=== PATIENT | male | born 1995 | race Caucasian/White ===

== ENCOUNTER 2018-08-20 01:22 | Observation (INO) | payer OTHER, BC ==
[2018-08-20] MEDS ORDERED: NS 1,000 ML IV ONE ×2 (02:04→02:15)
[2018-08-20] MEDS ORDERED: INSULIN LISPRO 100 UNIT/ML SC ONE (02:15)
[2018-08-20 02:17] LABS: PLATELET COUNT 353 10^3/uL (150-400)
[2018-08-20] MEDS ORDERED: IOPAMIDOL (ISOVUE 370) 100 ML BTL IV ONE (02:39)
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
[2018-08-20] MEDS ORDERED: ONDANSETRON 4 MG/2 ML VIAL IVP PRN (03:23)
[2018-08-20] MEDS ORDERED: DIAZEPAM 5 MG TAB PO PRN (03:23)
[2018-08-20] MEDS ORDERED: LR 1,000 ML IV SCH (03:30)
[2018-08-20] MEDS ORDERED: D50W 25 GM/50 ML VIAL IVP PRN (03:55)
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
[2018-08-20 04:54] LABS: PLATELET COUNT 297 10^3/uL (150-400)
[2018-08-20 05:08] LABS: INR 0.94 (0.83-1.16); PROTIME(PATIENT) 12.8 SEC (12.0-15.0)
--- NOTE | 2018-08-20 06:13 | CPEKG ---
Test Reason : OPEN Blood Pressure : / mmHG Vent. Rate : 120 BPM Atrial Rate : 120 BPM P-R Int : 123 ms QRS Dur : 094 ms QT Int : 317 ms P-R-T Axes : 079 085 047 degrees QTc Int : [address] elev, probable normal early repol pattern Confirmed by Mau Duckworth ([id number]) on 08/20/2018 6:12:28 AM Referred By: Confirmed By:Mau Duckworth
[2018-08-20 06:27] LABS: HEPATITIS C ANTIBODY TOTAL NEGATIVE (NEGATIVE)
[2018-08-20] MEDS ORDERED: INSULIN LISPRO 100 UNIT/ML SC SCH ×2 (08:00→21:00)
[2018-08-20 08:52] LABS: HEPATITIS A ANTIBODY IGM (BCH) NEGATIVE (NEGATIVE); HEPATITIS B CORE AB IGM NEGATIVE (NEGATIVE); HEPATITIS B SURFACE ANTIGEN NEGATIVE (NEGATIVE)
[2018-08-20] MEDS: BACITRACIN ZINC 14.2 GM OINTTUBE TP SCH ×2 (09:26→21:43)
[2018-08-20] MEDS: ONDANSETRON DISINTEGRATING 4 MG TAB PO PRN (09:47)
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
[2018-08-20] MEDS ORDERED: ACETAMINOPHEN 325 MG TAB PO PRN (10:17)
[2018-08-20] MEDS ORDERED: MAGNESIUM HYDROXIDE 30 ML UDCUP PO PRN (10:40)
[2018-08-20] MEDS ORDERED: POLYETHYLENE GLYCOL 3350 17 GM PKT PO PRN (10:40)
[2018-08-20] MEDS ORDERED: LACTULOSE 20 GM/30 ML UDCUP PO PRN (10:40)
[2018-08-20] MEDS ORDERED: BISACODYL 10 MG SUPP PR PRN (10:40)
[2018-08-20] MEDS ORDERED: NON-FORMULARY NEW DRUG (Insulin Pump, Patient Own 1 EA) MISC SCH (10:45)
[2018-08-20] MEDS ORDERED: D50W 25 GM/50 ML SYR IVP PRN (10:50)
[2018-08-20] MEDS ORDERED: INSULIN PUMP, PATIENT OWN 1 EA MISC SCH (11:00)
[2018-08-20] MEDS: HYDROCODONE/APAP 5/325 TAB PO PRN ×3 (11:12→20:39)
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
[2018-08-20] MEDS: IBUPROFEN 600 MG TAB PO PRN (13:33)
[2018-08-20] MEDS ORDERED: INSULIN REGULAR HUMAN 100 UNIT/ML UNIT IVP ONE (13:41)
[2018-08-20 14:13] LABS: PLATELET COUNT 276 10^3/uL (150-400)
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
[2018-08-20] MEDS: SENNOSIDES/DOCUSATE SODIUM TAB PO SCH (20:36)
[2018-08-20] MEDS ORDERED: PNEUMOCOCCAL 0.5ML VACCINE VIAL IM ONE (21:49)
[2018-08-21 00:33] LABS: PLATELET COUNT 267 10^3/uL (150-400)
[2018-08-21] MEDS: HYDROCODONE/APAP 5/325 TAB PO PRN ×3 (00:46→11:34)
[2018-08-21] MEDS: IBUPROFEN 600 MG TAB PO PRN (02:45)
[2018-08-21 08:16] VITALS: BP 120/60
[2018-08-21] MEDS: SENNOSIDES/DOCUSATE SODIUM TAB PO SCH ×2 (08:56→09:00)
[2018-08-21] MEDS: BACITRACIN ZINC 14.2 GM OINTTUBE TP SCH (09:00)
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
[2018-08-21] MEDS: ONDANSETRON DISINTEGRATING 4 MG TAB PO PRN (11:33)
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
== END 2018-08-21 14:11 | disposition home or self-care (01) ==
LOC: EDBD 01:22 → INTOOBSV 03:09 → F2N 04:10
PROVIDERS: ADMIT Surgery; ATTEND Surgery
DX: S12.391A Other nondisplaced fracture of fourth cervical vertebra, initial encounter for closed fracture (principal); S06.0X0A Concussion without loss of consciousness, initial encounter; S12.491A Other nondisplaced fracture of fifth cervical vertebra, initial encounter for closed fracture; S12.591A Other nondisplaced fracture of sixth cervical vertebra, initial encounter for closed fracture; S12.691A Other nondisplaced fracture of seventh cervical vertebra, initial encounter for closed fracture; E10.65 Type 1 diabetes mellitus with hyperglycemia; E86.9 Volume depletion, unspecified; V47.5XXA Car driver injured in collision with fixed or stationary object in traffic accident, initial encounter; Y92.410 Unspecified street and highway as the place of occurrence of the external cause; F10.129 Alcohol abuse with intoxication, unspecified; Y90.6 Blood alcohol level of 120-199 mg/100 ml; Z23 Encounter for immunization; Z96.41 Presence of insulin pump (external) (internal); F41.8 Other specified anxiety disorders
CPT/HCPCS: 70450; 70496; 70498; 71045; 72125; 73551; 90471; 92507; 92523; 93005; 96372; 96374; 96375; 97116; 97161; 97166; 97535; 99285; G0378; 80307; 82947-QW; G0008; G0009; G0472; G0480; J1815; J2270; J2405; L0120; Q9967